=== PATIENT | male | born 1990 | race Caucasian/White ===

== ENCOUNTER 2019-11-23 20:48 | Emergency (ER) | payer OTHER ==
[~2019-11-23] VITALS: Ht 167.6 cm; Wt 104.3 kg
[~2019-11-23 20:48] MED LIST: IBUP-2413 PO
--- NOTE | 2019-11-23 21:05 | NUR ---
PT AMBULATORY BIB MOTHER. ETOH AND AGGRESSIVE BEHAVIOR NOTED. PT STATING "I AM NOT OKAY" PLACED ON MONITOR AND PULSE OX. VSS. NO ACUTE DISTRESS NOTED. SKIN INTACT. RR EVEN AND UNALBORED. AWAITING MD FOR EVAL.
--- NOTE | 2019-11-24 00:43 | NUR ---
PT RESTING COMFORTABLY, ASLEEP. VSS. BLANKETS PROVIDED.
--- NOTE | 2019-11-24 04:39 | NUR ---
PT AWAKE. AAOX4. AMBULATORY WITH STEADY GAIT. Patient discharged to home in stable condition. Written and verbal after care instructions given. Patient verbalizes understanding of instruction.
[2019-11-24 04:42] VITALS: BP 127/84
== END 2019-11-24 04:42 | disposition home or self-care (01) ==
LOC: ER 20:50
DX: F10.129 Alcohol abuse with intoxication, unspecified (principal); Y90.9 Presence of alcohol in blood, level not specified

== ENCOUNTER 2019-12-11 22:37 | Emergency (ER) | payer OTHER ==
[~2019-12-11] VITALS: Ht 152.4 cm; Wt 107.5 kg
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
--- NOTE | 2019-12-11 23:03 | NUR ---
URINE SENT TO LAB
[2019-12-11 23:21] LABS: BASOPHILS # (AUTO) 0.1 /CMM (0.0-0.2); BASOPHILS % (AUTO) 0.7 % (0.0-2.0); EOSINOPHILS % (AUTO) 1.5 % (0.0-6.0); HEMATOCRIT 49 % (39-51); HEMOGLOBIN 16.2 g/dL (13.5-17.5); LYMPHOCYTES # (AUTO) 3.5 /CMM (0.8-4.8); LYMPHOCYTES % (AUTO) 37.6 % (20.0-44.0); MEAN CORPUSCULAR HGB CONC 33 g/dl (31.0-36.0); MEAN CORPUSCULAR VOLUME 90 fL (80-96); MONOCYTES # (AUTO) 0.5 /CMM (0.1-1.30); MONOCYTES % (AUTO) 5.7 % (2.0-12.0); NEUTROPHILS % (AUTO) 54.5 % (43.0-81.0); PLATELET COUNT (AUTO) 294 /CMM (150-450); RED BLOOD CELL COUNT(AUTO) 5.42 MIL/uL (4.5-6.0); WHITE BLOOD COUNT (AUTO) 9.2 K/uL (4.3-11.0)
[2019-12-11 23:26] LABS: CALCIUM, SERUM 8.6 mg/dL (8.5-10.1); CARBON DIOXIDE 23 mmol/L (21-32); CHLORIDE 108 mmol/L (98-107); CREATININE 0.7 mg/dL (0.6-1.3); GLUCOSE 109 mg/dL (74-106); POTASSIUM 3.7 mmol/L (3.5-5.1); SODIUM SERUM 145 mmol/L (136-145); UREA NITROGEN, BLOOD 9 mg/dL (7-18)
--- NOTE | 2019-12-11 23:27 | NUR ---
PATIENT STATED "IT'S 1989" MD AWARE.
[2019-12-11 23:34] LABS: ALANINE AMINOTRANSFERASE 91 U/L (12-78); ALBUMIN 4.2 g/dL (3.4-5.0); ALCOHOL, BLOOD 343 mg/dL (0-0); ALKALINE PHOSPHATASE 100 U/L (46-116); ASPARTATE AMINOTRANSFERASE 35 U/L (15-37); BILIRUBIN,DIRECT 0.1 mg/dL (0.0-0.2); BILIRUBIN,TOTAL 0.2 mg/dL (0.2-1.0); SALICYLATE 2.9 mg/dL (2.8-20.0); TOTAL PROTEIN, SERUM 8.1 g/dL (6.4-8.2)
[2019-12-11 23:39] LABS: ACETAMINOPHEN < 2 ug/ml (10-30)
[2019-12-12 00:42] LABS: APPEARANCE,URINE Clear (CLEAR); BILIRUBIN,URINE Negative (NEGATIVE); BLOOD, URINE Negative Ery/uL (NEGATIVE); COLOR,URINE Yellow (YELLOW); KETONES,URINE Negative (NEGATIVE); LEUKOCYTE ESTERASE ,URINE Negative (NEGATIVE); NITRITE, URINE Negative (NEGATIVE); PH,URINE 5.5 (5.0-8.0); PROTEIN,URINE Negative (NEGATIVE); UGLUCOSE Negative (NEGATIVE); UROBILINOGEN,URINE 0.2 EU/dL (0.2)
--- NOTE | 2019-12-12 03:01 | NUR ---
Patient is resting comfortably in bed with eyes closed. Easily aroused. VSS.
--- NOTE | 2019-12-12 06:17 | NUR ---
Patient discharged to home in stable condition. Written and verbal after care instructions given. Patient verbalizes understanding of instruction. pt a, ox4, reporting living w. his parents. VSS. denied any discomfort. noted w/ steady gaits upon D/C
[2019-12-12 06:18] VITALS: BP 133/79
== END 2019-12-12 06:19 | disposition home or self-care (01) ==
LOC: ER 22:38
DX: F10.229 Alcohol dependence with intoxication, unspecified (principal); R41.0 Disorientation, unspecified; F12.10 Cannabis abuse, uncomplicated; Z79.899 Other long term (current) drug therapy; Y90.8 Blood alcohol level of 240 mg/100 ml or more
CPT/HCPCS: 36415; 80048; 80076; 80305; 80307; 80329; 81001; 85025; 99285; G0480; 81000-TC

== ENCOUNTER 2020-05-02 22:46 | Emergency (ER) | payer MEDICAID, OTHER ==
[~2020-05-02] VITALS: Ht 162.6 cm; Wt 111.1 kg
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
--- NOTE | 2020-05-02 23:01 | NUR ---
FOOT CLEANED WITH NORMAL SALINE
[2020-05-02] MEDS ORDERED: TDAP [DIPH/PERTUSSIS/TET] 0.5 ML VIAL IM ONE (23:02)
[2020-05-02] MEDS: TDAP [DIPH/PERTUSSIS/TET] 0.5 ML VIAL IM ONE (23:08)
[2020-05-02] MEDS ORDERED: HYDROCODONE/APAP 5/325MG 1 EACH TABLET ONE (23:21)
[2020-05-02] MEDS: HYDROCODONE/APAP 5/325MG 1 EACH TABLET PO ONE (23:23)
--- NOTE | 2020-05-02 23:25 | NUR ---
TECH AT BEDSIDE FOR XRAY
[2020-05-02] MEDS ORDERED: GELATIN SPONGE,ABSORBABLE 1 SPONGE SPONGE TP ONE (23:44)
[2020-05-02] MEDS ORDERED: AMOX/CLAVULANATE 875 MG TABLET ONE (23:44)
[2020-05-02] MEDS: GELATIN SPONGE,ABSORBABLE 1 SPONGE SPONGE TP ONE (23:47)
[2020-05-02] MEDS: AMOX/CLAVULANATE 875 MG TABLET PO ONE (23:47)
--- NOTE | 2020-05-03 00:48 | NUR ---
Patient discharged to home in stable condition. Written and verbal after care instructions given. Patient verbalizes understanding of instruction.
[2020-05-03 00:49] VITALS: BP 119/52
== END 2020-05-03 00:49 | disposition home or self-care (01) ==
LOC: ER 22:54
DX: S91.331A Puncture wound without foreign body, right foot, initial encounter (principal); W22.8XXA Striking against or struck by other objects, initial encounter; Y93.89 Activity, other specified; Y92.89 Other specified places as the place of occurrence of the external cause; Y99.8 Other external cause status
CPT/HCPCS: 73630; 90471; 90715; 99284; A6403 ×2